=== PATIENT | male | born 1940 | race Two or more races ===

== ENCOUNTER 2021-09-04 08:11 | Day surgery (SDC) | payer OTHER ==
[2021-08-29 10:00] VITALS: BMI 23.5
[2021-09-04] MEDS ORDERED: CELECOXIB 200 MG CAPSULE ONE (08:40)
[2021-09-04] MEDS: CELECOXIB 200 MG CAPSULE PO ONE ×2 (08:53→16:24)
[2021-09-04] MEDS ORDERED: BUPIVACAINE LIPOSOME/PF (EXPAREL) 266 MG/20 ML VIAL ONE (10:38)
[2021-09-04] MEDS ORDERED: MIDAZOLAM HCL 2 MG/2 ML SINGLE DOSE VIAL ONE ×2 (10:38→12:32)
[2021-09-04] MEDS ORDERED: BUPIVACAINE HCL/PF 0.5% (5MG/ML) 10 ML VIAL ONE (10:38)
[2021-09-04] MEDS ORDERED: FENTANYL CITRATE/PF 50 MCG/ML VIAL ONE (10:38)
[2021-09-04] MEDS ORDERED: ceFAZolin SODIUM 1 GM VIAL ONE ×3 (10:44→19:56)
[2021-09-04] MEDS ORDERED: VANCOMYCIN 1,000 MG VIAL (RESTRICTED TO ID ONLY) ONE (10:44)
[2021-09-04] MEDS ORDERED: TRANEXAMIC ACID 1000 MG/10 ML VIAL IVPUSH ONE (11:00)
[2021-09-04] MEDS ORDERED: CEFAZOLIN 2 GM in DEXTROSE 5%-WATER - 50 ML IVPB ONE (11:00)
[2021-09-04] MEDS ORDERED: DEXAMETHASONE SOD PHOSPHATE 4 MG/1 ML VIAL ONE (11:16)
[2021-09-04] MEDS ORDERED: ONDANSETRON 4 MG/2 ML VIAL ONE (11:16)
[2021-09-04] MEDS ORDERED: TRANEXAMIC ACID 1000 MG/10 ML VIAL ONE (11:16)
[2021-09-04] MEDS ORDERED: MAG HYDROX/AL HYDROX/SIMETH 30 ML UNIT-DOSE CUP PO PRN (12:01)
[2021-09-04] MEDS ORDERED: ONDANSETRON 4 MG/2 ML VIAL IVPUSH PRN ×2 (12:01→13:55)
[2021-09-04] MEDS ORDERED: BUPIVACAINE HCL 50 ML ONE (12:03)
[2021-09-04] MEDS ORDERED: LACTATED RINGERS SOLUTION 1,000 ML IV SCH ×2 (12:15→14:00)
[2021-09-04] MEDS ORDERED: oxyCODONE HCL 5 MG TABLET PO PRN (13:59)
[2021-09-04] MEDS: ACETAMINOPHEN 1000 MG/100 ML BAG IVPB ONE ×2 (14:05→16:25)
[2021-09-04] MEDS ORDERED: ePHEDrine SULFATE 50 MG/1 ML AMPULE ONE (16:31)
[2021-09-04] MEDS ORDERED: DEXTROSE 5%-WATER - 50 ML IVPB ONE (19:57)
[2021-09-04] MEDS: CEFAZOLIN 2 GM in DEXTROSE 5%-WATER - 50 ML IVPB SCH (20:24)
[2021-09-04] MEDS: SENNOSIDES/DOCUSATE COMBO (SENNA PLUS) TABLET (UD) PO SCH (21:17)
[2021-09-04] MEDS: oxyCODONE HCL 5 MG TABLET PO PRN (21:46)
[2021-09-04] MEDS ORDERED: QUINAPRIL HCL 10 MG TABLET PO SCH (22:00)
[2021-09-04] MEDS ORDERED: HYDROCHLOROTHIAZIDE 25 MG TABLET (FP) PO SCH (22:00)
[2021-09-04] MEDS ORDERED: ATORVASTATIN CA 20 MG TABLET (FP) PO SCH (22:00)
[2021-09-04] MEDS ORDERED: FINASTERIDE 5 MG TABLET (FP) PO SCH (22:00)
[2021-09-05] MEDS: oxyCODONE HCL 5 MG TABLET PO PRN (02:09)
[2021-09-05] MEDS: CEFAZOLIN 2 GM in DEXTROSE 5%-WATER - 50 ML IVPB SCH (03:06)
[2021-09-05] MEDS ORDERED: ASPIRIN 325 MG TABLET PO SCH (08:00)
[2021-09-05 08:16] LABS: HEMATOCRIT 31.7 % (35.4-49); HEMOGLOBIN 11.1 G/dL (11.7-16.9); MCH 31.3 pg (25.7-33.7); MEAN CELL VOLUME 89.4 fl (80-96); MEAN PLT VOLUME 8.2 fl (7.5-11.1); PLATELET COUNT 259.2 10^3/uL (134-434); RBC 3.55 10^6/uL (4.00-5.60); RDW 13.5 % (11.9-15.9); WHITE BLOOD COUNT 14.9 10^3/uL (4.0-10.8)
[2021-09-05] MEDS ORDERED: MULTIVITAMINS (DAILY MVI) TABLET (FP) PO SCH (10:00)
[2021-09-05] MEDS ORDERED: PANTOPRAZOLE 40 MG TABLET PO SCH (10:00)
[2021-09-05] MEDS: SENNOSIDES/DOCUSATE COMBO (SENNA PLUS) TABLET (UD) PO SCH (10:37)
[2021-09-05] MEDS ORDERED: ACETAMINOPHEN 325 MG TABLET (FP) PO PRN (11:52)
[2021-09-05 14:02] VITALS: BP 116/58; PULSE 90; TEMP 98.4
== END 2021-09-05 16:05 | disposition home health service (06) ==
LOC: FASUSAT 08:11 → FM/S 15:58 → FASUSAT 09-05 16:05
PROVIDERS: ATTEND Orthopaedic Surgery
PROC: 8E0YXBZ Computer Assisted Procedure of Lower Extremity (ICD-10-PCS; 2021-09-04)
PROC: 8E0Y0CZ Robotic Assisted Procedure of Lower Extremity, Open Approach (ICD-10-PCS; 2021-09-04)
PROC: 0SRC0JA Replacement of Right Knee Joint with Synthetic Substitute, Uncemented, Open Approach (ICD-10-PCS; principal; 2021-09-04 12:25)
DX: M17.11 Unilateral primary osteoarthritis, right knee (principal); I10 Essential (primary) hypertension; E78.5 Hyperlipidemia, unspecified
CPT/HCPCS: 20985; 27447; C1776; S2900; 36415; 73560-TC-RT-FY; 85027; 88305-TC; 88311-TC; 94760; 97010-GP; 97116-GP; 97162-GP

== ENCOUNTER 2023-02-17 08:33 | Day surgery (SDC) | payer OTHER ==
[2023-02-13 12:35] VITALS: BMI 23.5
[2023-02-17] MEDS ORDERED: LIDOCAINE HCL/PF 2% SDV 5ML VIAL ONE (10:28)
[2023-02-17] MEDS ORDERED: PROPOFOL 40 ML ONE (10:28)
[2023-02-17 11:20] VITALS: TEMP 97.9
[2023-02-17 11:29] VITALS: BP 112/60; PULSE 72; RESP 18
== END 2023-02-17 11:15 | disposition home or self-care (01) ==
LOC: FASU-ENDO 08:33
PROVIDERS: ATTEND Internal Medicine Gastroenterology
PROC: 0DB68ZX Excision of Stomach, Via Natural or Artificial Opening Endoscopic, Diagnostic (ICD-10-PCS; 2023-02-17)
PROC: 0DB98ZX Excision of Duodenum, Via Natural or Artificial Opening Endoscopic, Diagnostic (ICD-10-PCS; principal; 2023-02-17 10:45)
DX: K29.50 Unspecified chronic gastritis without bleeding (principal); R12 Heartburn
CPT/HCPCS: 88305-TC; 88342-TC

== ENCOUNTER 2023-08-13 06:18 | Day surgery (SDC) | payer OTHER ==
[2023-08-06 17:08] VITALS: BMI 23.5
[2023-08-13] MEDS: CYCLOPENTOLATE 2% OPHTH SOLN 2 ML BOTTLE ONE (06:55)
[2023-08-13] MEDS: TROPICAMIDE 1% OPHTH SOLN 15 ML BOTTLE ONE (06:55)
[2023-08-13] MEDS: PHENYLEPHRINE 2.5% OPTHALMIC DROP 2ML BOTTLE ONE (06:55)
[2023-08-13] MEDS: CIPROFLOXACIN 0.3% EYE DROPS 5 ML BOTTLE ONE (06:55)
[2023-08-13] MEDS ORDERED: LIDOCAINE 1% P/F 10 MG/ML VIAL ONE (07:15)
[2023-08-13] MEDS ORDERED: EPINEPHrine/PF 1 MG/1 ML (1:1,000) AMPULE ONE (07:15)
[2023-08-13] MEDS ORDERED: NEO/POLYMYX B SULF/DEXAMETH OPHTHALMIC 5ML BOTTLE ONE (07:16)
[2023-08-13] MEDS ORDERED: TETRACAINE 0.5% OPHTH SOLN 2 ML BOTTLE ONE (07:16)
[2023-08-13] MEDS ORDERED: CARBACHOL 0.01% INTRA-OCULAR 1.5 ML VIAL ONE (07:16)
[2023-08-13] MEDS ORDERED: BSS (NA/CA/MG/K) BALANCED SALT SOLUTION OPHTH SOLN 15 ML BOTTLE ONE (07:16)
[2023-08-13] MEDS ORDERED: MIDAZOLAM HCL 2 MG/2 ML SINGLE DOSE VIAL ONE (07:57)
[2023-08-13] MEDS ORDERED: ONDANSETRON 4 MG/2 ML VIAL ONE (08:17)
[2023-08-13 08:50] VITALS: RESP 16; TEMP 97.9
[2023-08-13 09:17] VITALS: BP 128/69; PULSE 65
== END 2023-08-13 09:38 | disposition home or self-care (01) ==
LOC: FASU 06:18
PROVIDERS: ATTEND Ophthalmology
PROC: 08RK3JZ Replacement of Left Lens with Synthetic Substitute, Percutaneous Approach (ICD-10-PCS; principal; 2023-08-13 08:19)
DX: H26.8 Other specified cataract (principal)
CPT/HCPCS: 66984; V2632

== ENCOUNTER 2023-09-08 01:46 | Observation (INO) | payer OTHER ==
[2023-09-08] MEDS ORDERED: MECLIZINE HCL 25 MG TABLET (FP) ONE (02:31)
[2023-09-08] MEDS: SODIUM CHLORIDE 0.9% 500 ML INFUS.BAG IV ONE (02:35)
[2023-09-08] MEDS: MECLIZINE HCL 25 MG TABLET (FP) PO ONE (02:35)
[2023-09-08 02:54] LABS: BASO % 0.6 % (0-2.0); EOS % 3.9 % (0-4.5); HEMATOCRIT 36.8 % (35.4-49); HEMOGLOBIN 12.3 GM/dL (11.7-16.9); LYMPH % 31.9 % (8-40); MCH 30.1 pg (25.7-33.7); MCHC 33.5 g/dl (32.0-35.9); MEAN PLT VOLUME 8.2 fl (7.5-11.1); MONO % 10.2 % (3.8-10.2); NEUT % 53.4 % (42.8-82.8); PLATELET COUNT 265 10^3/uL (134-434); RBC 4.09 M/mm3 (4.00-5.60); RDW 12.5 % (11.9-15.9); WHITE BLOOD COUNT 8.1 K/mm3 (4.0-10.0)
[2023-09-08 03:03] LABS: INR 0.91 (0.83-1.09); PROTHROMBIN TIME (PATIENT) 10.5 SEC (9.7-13.0)
[2023-09-08 03:13] LABS: POTASSIUM 4.2 mmol/L (3.5-5.1)
[2023-09-08 03:16] LABS: ALBUMIN 3.7 g/dl (3.4-5.0)
[2023-09-08 03:19] LABS: CREATININE 1.2 mg/dL (0.55-1.3)
[2023-09-08 03:21] LABS: BILIRUBIN,TOTAL 0.4 mg/dL (0.2-1); TOT PROT 6.3 g/dl (6.4-8.2)
[2023-09-08] MEDS ORDERED: LIDOCAINE 5% TOPICAL PATCH ONE (04:33)
[2023-09-08] MEDS ORDERED: MAG HYDROX/AL HYDROX/SIMETH 30 ML UNIT-DOSE CUP ONE (04:33)
[2023-09-08] MEDS ORDERED: ACETAMINOPHEN 325 MG TABLET (FP) PO PRN (04:44)
[2023-09-08] MEDS ORDERED: DOCUSATE SODIUM 100 MG CAPSULE (FP) PO PRN (04:44)
[2023-09-08] MEDS: MAG HYDROX/AL HYDROX/SIMETH 30 ML UNIT-DOSE CUP PO ONE (04:49)
[2023-09-08] MEDS: LIDOCAINE 5% TOPICAL PATCH TP ONE (04:49)
[2023-09-08 04:58] VITALS: BMI 23.3
[2023-09-08] MEDS: MECLIZINE HCL 25 MG TABLET (FP) PO SCH (06:53)
[2023-09-08] MEDS: ASPIRIN 81 MG CHEWABLE TABLETS PO ONE (06:53)
[2023-09-08 09:22] VITALS: RESP 18
[2023-09-08] MEDS: INSULIN ASPART SLIDING SCALE (NOVOLOG) 1 VIAL SQ SCH (09:46)
[2023-09-08] MEDS: ASPIRIN 325 MG ENTERIC COATED TABLET (FP) PO ONE (11:16)
[2023-09-08] MEDS: FAMOTIDINE 40 MG TABLET PO SCH (11:16)
[2023-09-08] MEDS: FAMOTIDINE 20 MG TABLET PO SCH (11:52)
[2023-09-08 14:16] VITALS: BP 117/52; PULSE 73; TEMP 97.9
[2023-09-08] MEDS: SODIUM CHLORIDE 0.45% 1,000 ML IV SCH (14:24)
[2023-09-08] MEDS ORDERED: FINASTERIDE 5 MG TABLET (FP) PO SCH (22:00)
[2023-09-08] MEDS ORDERED: LIDOCAINE PATCH REMOVAL MC SCH (22:00)
[2023-09-08] MEDS ORDERED: ATORVASTATIN CA 10 MG TABLET (FP) PO SCH (22:00)
== END 2023-09-08 16:00 | disposition home or self-care (01) ==
LOC: FER 01:46 → FM/S 04:24
PROVIDERS: ADMIT Internal Medicine
PROC: 3E0337Z Introduction of Electrolytic and Water Balance Substance into Peripheral Vein, Percutaneous Approach (ICD-10-PCS; principal; 2023-09-08)
DX: H81.10 Benign paroxysmal vertigo, unspecified ear (principal); E86.0 Dehydration; K21.9 Gastro-esophageal reflux disease without esophagitis; I10 Essential (primary) hypertension; E78.5 Hyperlipidemia, unspecified
CPT/HCPCS: 36415; 70450-TC; 70551-TC; 71045-TC-FY; 80053; 82962; 84484; 85025; 85610; 93005; 96360; 97116-GP; 97161-GP; 99285-25; G0378

== ENCOUNTER 2023-10-01 10:09 | Day surgery (SDC) | payer OTHER ==
[2023-09-30 12:12] VITALS: BMI 23.5
[2023-10-01] MEDS: CIPROFLOXACIN 0.3% EYE DROPS 5 ML BOTTLE ONE (10:45)
[2023-10-01] MEDS: PHENYLEPHRINE 2.5% OPTHALMIC DROP 2ML BOTTLE ONE (10:45)
[2023-10-01] MEDS: CYCLOPENTOLATE 2% OPHTH SOLN 2 ML BOTTLE ONE (10:45)
[2023-10-01] MEDS: TROPICAMIDE 1% OPHTH SOLN 15 ML BOTTLE ONE (10:45)
[2023-10-01] MEDS ORDERED: EPINEPHrine/PF 1 MG/1 ML (1:1,000) AMPULE ONE (11:12)
[2023-10-01] MEDS ORDERED: TETRACAINE 0.5% OPHTH SOLN 2 ML BOTTLE ONE (11:12)
[2023-10-01] MEDS ORDERED: NEO/POLYMYX B SULF/DEXAMETH OPHTHALMIC 5ML BOTTLE ONE (11:12)
[2023-10-01] MEDS ORDERED: LIDOCAINE 1% P/F 10 MG/ML VIAL ONE (11:12)
[2023-10-01] MEDS ORDERED: CARBACHOL 0.01% INTRA-OCULAR 1.5 ML VIAL ONE (11:12)
[2023-10-01] MEDS ORDERED: BSS (NA/CA/MG/K) BALANCED SALT SOLUTION OPHTH SOLN 15 ML BOTTLE ONE (11:12)
[2023-10-01] MEDS ORDERED: MIDAZOLAM HCL 2 MG/2 ML SINGLE DOSE VIAL ONE (11:34)
[2023-10-01 13:36] VITALS: RESP 18
[2023-10-01 13:45] VITALS: BP 121/64
[2023-10-01 13:47] VITALS: PULSE 77; TEMP 97.4
== END 2023-10-01 13:48 | disposition home or self-care (01) ==
LOC: FASU 10:09
PROVIDERS: ATTEND Ophthalmology
PROC: 08RJ3JZ Replacement of Right Lens with Synthetic Substitute, Percutaneous Approach (ICD-10-PCS; principal; 2023-10-01 12:36)
DX: H26.8 Other specified cataract (principal)
CPT/HCPCS: 66984; V2632

== ENCOUNTER 2023-10-28 19:13 | Emergency (ER) | payer OTHER ==
[2023-10-28 19:29] VITALS: BP 157/77; PULSE 79; RESP 18; TEMP 98.6; BMI 24.2
== END 2023-10-28 20:05 | disposition home or self-care (01) ==
LOC: FER 19:13
DX: R09.81 Nasal congestion (principal); J39.8 Other specified diseases of upper respiratory tract; B97.89 Other viral agents as the cause of diseases classified elsewhere
CPT/HCPCS: 99282-25